=== PATIENT | male | born 1995 | race Caucasian/White ===

== ENCOUNTER 2019-10-30 12:43 | Emergency (ER) | payer SELFPAY ==
[~2019-10-30] VITALS: Ht 185.4 cm; Wt 124.7 kg
[2019-10-30] MEDS ORDERED: DOXYCYCLINE100 M3 PO ×2 (13:09→13:23)
== END 2019-10-30 13:25 | disposition home or self-care (01) ==
LOC: ED 12:43
DX: L02.413 Cutaneous abscess of right upper limb (principal); Z88.1 Allergy status to other antibiotic agents